=== PATIENT | female | born 1955 | race African-American/Black ===

== ENCOUNTER → 2018-07-08 | Outpatient (CLI) | payer OTHER ==
--- NOTE | 2018-07-08 15:26 | RAD ---
EXAM: Right lower extremity venous Doppler sonogram. HISTORY: Pain and cramping. TECHNIQUE: [place] scale and color Doppler sonographic evaluation of the right lower extremity veins with spectral waveform analysis was performed. FINDINGS: There is normal color flow, normal compressibility and there are normal spectral waveforms in the common femoral, superficial femoral, popliteal, posterior tibial and greater saphenous veins. IMPRESSION: No Doppler evidence of lower extremity deep venous thrombosis. Electronically signed by: Sandie Méndez MD (07/08/2018 3:22 PM) [place] [id number]
== END | disposition home or self-care (01) ==
LOC: US 13:58
PROVIDERS: ATTEND Family Medicine
DX: R25.2 Cramp and spasm (principal); M79.661 Pain in right lower leg
CPT/HCPCS: 93971

== ENCOUNTER → 2019-06-15 | Outpatient (CLI) | payer OTHER ==
--- NOTE | 2019-06-16 08:00 | RAD ---
Examination: CT CHEST WO CONTRAST History: Smoker Comparison/Correlation: None Findings: Axial images of chest were obtained without contrast. Sagittal and coronal reformatted images were provided. Right lower paratracheal and right hilar calcified lymph nodes are present. Anterior right upper lung field calcified granuloma is present. No infiltrate or pleural effusion. No suspicious nodule or mass. Tracheobronchial tree is unremarkable. Ascending thoracic aortic aorta has a diameter of 4.2 cm. Partially visualized upper abdomen is unremarkable. Bony structures are unremarkable. Impression: Lung RADS category 1-negative. Continue annual follow-up lung cancer screening CT based on screening guidelines and other clinical criteria. Ascending aortic ectasia. Attention on follow-up examinations is recommended. PQRS Compliance Statement: One or more of the following individualized dose reduction techniques were utilized for this examination: 1. Automated exposure control 2. Adjustment of the mA and/or kV according to patient size 3. Use of iterative reconstruction technique Electronically signed by: Jesus Maria MD (06/16/2019 7:57 AM) [facility]
== END | disposition home or self-care (01) ==
LOC: CT 16:00
PROVIDERS: ATTEND Family Medicine
DX: J84.10 Pulmonary fibrosis, unspecified (principal); I77.810 Thoracic aortic ectasia; F17.200 Nicotine dependence, unspecified, uncomplicated
CPT/HCPCS: 71250